=== PATIENT | male | born 1975 | race Two or more races ===

== ENCOUNTER 2022-05-14 15:27 | Emergency (ER) | payer OTHER ==
[~2022-05-14] VITALS: Ht 170.2 cm; Wt 82.0 kg
[2022-05-14] MEDS ORDERED: OXYCODONE HCL/ACETAMINOPHEN 5/325MG TABLET PO ONE (17:00)
[2022-05-14] MEDS ORDERED: OXYC-100 MT (17:51)
[2022-05-14] MEDS ORDERED: NAPR-681 MT (17:55)
[2022-05-14 18:25] VITALS: BP 135/84
== END 2022-05-14 18:32 | disposition home or self-care (01) ==
LOC: ER 15:27
DX: S42.492A Other displaced fracture of lower end of left humerus, initial encounter for closed fracture (principal); Y08.89XA Assault by other specified means, initial encounter; Y93.89 Activity, other specified; Y92.89 Other specified places as the place of occurrence of the external cause; Y99.8 Other external cause status
CPT/HCPCS: 29105; 73080; 99283